=== PATIENT | male | born 1955 | race African-American/Black ===

== ENCOUNTER 2018-01-19 01:08 | Emergency (ER) | payer SELFPAY ==
[~2018-01-19] VITALS: Ht 182.9 cm; Wt 73.0 kg
[2018-01-19] MEDS ORDERED: DIPHENHYDRAMINE 50 MG/ML, 1ML ONE (01:59)
[2018-01-19] MEDS ORDERED: PROCHLORPERAZINE 5 MG/ML, 2ML ONE (01:59)
[2018-01-19] MEDS ORDERED: SODIUM CHLORIDE 0.9% 1,000ML IVBOLUS ONE (02:00)
[2018-01-19] MEDS ORDERED: SODIUM CHLORIDE FLUSH 10ML SYR IVF ONE (02:00)
[2018-01-19] MEDS ORDERED: PROCHLORPERAZINE 5 MG/ML, 2ML IVPush ONE (02:00)
[2018-01-19] MEDS ORDERED: DIPHENHYDRAMINE 50 MG/ML, 1ML IVPush ONE (02:00)
[2018-01-19] MEDS ORDERED: PLEASE ENTER ALLERGIES MC SCH (02:30)
[2018-01-19] MEDS ORDERED: ACETAMINOPHEN 500 MG TABLET PO ONE (02:50)
[2018-01-19 03:20] VITALS: BP 133/71
[2018-01-19] MEDS ORDERED: ACETAMINOPHEN 500 MG TABLET ONE (03:25)
== END 2018-01-19 04:53 | disposition home or self-care (01) ==
LOC: ED 04:20
DX: R51 Headache (principal); Z90.49 Acquired absence of other specified parts of digestive tract
CPT/HCPCS: 93005; 96374; 96375; 99283; J0780; J1200; J7030